=== PATIENT | female | born 1985 | race Caucasian/White ===

== ENCOUNTER 2016-11-18 21:46 | Emergency (ER) | payer MEDICAID ==
[~2016-11-18] VITALS: Ht 152.4 cm; Wt 102.0 kg
[~2016-11-18 21:46] MED LIST: GABA-526 PO; IBUP400T22 PO; LEVO750T25 PO; LORA-444 PO; LORA1TAB PO; OSLT75C PO; OXYC-284 PO
[2016-11-18 22:00] VITALS: Ht 152.4 cm; Wt 102.0 kg
[2016-11-19] MEDS ORDERED: ONDANSETRON (ODT) 4 MG TAB ODT STA (00:18)
[2016-11-19] MEDS ORDERED: BUPIVACAINE 0.25% (MPF) 30 ML INJ INJ ONE (00:30)
--- NOTE | 2016-11-19 00:50 | ERD ---
ER Documentation Chief Complaint Date/Time DATE: 11/19/16 TIME: 00:40 Chief Complaint worsening of chronic back pain and bilateral leg weakness HPI 31-year-old female with chronic back pain is complaining of worsening lower back pain that radiates to bilateral legs since yesterday. Patient stated that she jumped out of bed quickly previous night. Shortly after, she is experiencing pain in the bilateral buttocks region that radiates down the front of both legs. She also occasionally feeling numbness and tingling in her legs. Patient receives epidural injection for her chronic back pain, last injection was 6-7 months ago. Patient also complaining of nausea, vomiting, diarrhea since yesterday as well. And able to drink any fluids because of vomiting. She took Zofran at home without improvement. Patient stated that she is feeling anxious, she has history of anxiety. Her anxiety often leads to vomiting. She took Ativan at home without improvement of anxiety. She is able to ambulate without difficulty. Denies fever or chills. Denies falls or heavy lifting. ROS All systems reviewed and are negative except as per history of present illness. Medications Home Meds Active Scripts Cyclobenzaprine Hcl* (Cyclobenzaprine Hcl*) 10 Mg Tablet, 10 MG PO TID, #15 TAB Prov:FLOR CHUA DIRECTOR CPG 11/19/16 Acetaminophen* (Tylophen*) 500 Mg Capsule, 1 CAP PO Q6H Y for PAIN AND OR ELEVATED TEMP, #20 CAP Prov:FLOR CHUA. DIRECTOR CPG 11/19/16 Oxycodone Hcl-Acetaminophen* (Percocet*) 10-325 Mg Tablet, 1 TAB PO Q4H Y for SEVERE PAIN LEVEL 7-10, #20 TAB Prov:NICOLE GARCIAS NP 03/09/16 Ibuprofen* (Motrin*) 400 Mg Tab, 400 MG PO Q6H Y for PAIN AND OR ELEVATED TEMP, #30 TAB Prov:MARRY ALLEN PA-C 11/18/15 Lorazepam* (Lorazepam*) 1 Mg Tablet, 1 MG PO Q8, #3 TAB Prov:CIPRIANO BEAULIEU PA-C 11/08/15 Oseltamivir Phosphate* (Tamiflu*) 75 Mg Capsule, 75 MG PO BID, #10 CAP Prov:HOLA HWANG MD 10/02/15 Levofloxacin* (Levaquin*) 750 Mg Tablet, 750 MG PO DAILY, #10 TAB Prov:HOLA HWANG MD 10/02/15 Reported Medications Gabapentin* (Gabapentin*) 600 Mg Tablet, 600 MG PO TID, TAB 06/09/14 Lorazepam* (Ativan*) 2 Mg Tablet, 2 MG PO BID, TAB 06/09/14 Allergies Allergies: Coded Allergies: No Known Allergy (Unverified , 11/18/15) PMhx/Soc History of Surgery: Yes (hysterectomy,kidney sx, galls tones removed) Anesthesia Reaction: No Hx Neurological Disorder: No Hx Respiratory Disorders: No Hx Cardiac Disorders: No Hx Psychiatric Problems: Yes (anxiety) Hx Miscellaneous Medical Probl: Yes (chronic back pain, STAGE 4 ENDOMETRIOSIS CONNECTED TO INTESTINES ) Hx Alcohol Use: No Hx Substance Use: No Hx Tobacco Use: No Smoking Status: Never smoker Physical Exam Vitals Vital Signs Date Time Temp Pulse Resp B/P Pulse Ox O2 Delivery O2 Flow Rate FiO2 11/18/16 22:00 98.4 124 18 135/80 97 Physical Exam General impression: Well-developed, morbidly obese. Alert, oriented, in no acute distress Head: Normocephalic, atraumatic. Respiration: Normal respiratory effort. Lungs clear to auscultate bilaterally. No wheezes, rales or rhonchi. Cardiovascular: Regular rate and rhythm. No murmurs or extra heart sounds. Abdomen: Abdomen normal to inspection. Nontender. No masses or organomegaly. Bowel sounds normal. Back: Normal to inspection. Markedly lordosis noted in the lumbar spine, with midline spine tenderness at L4 - L5 levels. Bilateral gluteal muscle spasm. No CVA tenderness. Extremities: Extremities normal to inspection, nontender. ROM normal. Neuro: Mental status normal, speech normal. DIRECTOR OF CURRICULUM grossly intact. Skin: Normal turgor. No rash or lesions. Psych: Normal mood and affect. Results 24 hrs Current Medications Medications (Trade) Dose Ordered Sig/Boni Route PRN Reason Start Time Stop Time Status Last Admin Dose Admin Ondansetron HCl (Zofran Odt) 8 mg ONCE STAT ODT 11/19/16 00:18 11/19/16 00:21 DC 11/19/16 00:38 Bupivacaine HCl (Marcaine 0.25% (Mpf) 30 ml) 30 ml ONCE ONCE INJ 11/19/16 00:30 2/26/17 00:31 DC Procedures/MDM Procedure note: Trigger point injection Trigger point injection performed by me. 10 mL of bupivacaine is injected into bilateral gluteal region. Total number muscle groups injected: 2. Patient reports improvement of pain after the trigger point injection. Zofran 8 mg ODT given to the patient in the ED for nausea vomiting. Patient did not have any further vomiting in the ED. Patient has chronic back pain, the radiation of the pain is likely due to new onset gluteal muscle spasm. Low suspicion for spinal fracture, subluxation, disc herniation, spinal epidural abscess, or cauda equina syndrome. Patient's pain improved after trigger point injection. Patient also reports nausea, vomiting, diarrhea 1 day. I suspect viral gastroenteritis. Patient is afebrile, does not have any abdominal tenderness on palpation. I doubt acute appendicitis, cholecystitis or other acute abdomen. Patient does not have any active vomiting, is able to maintain by mouth fluid intake. Patient appears well, stable for discharge and outpatient management. Medical decision making shared with patient and family. Education provided to patient and family. Patient and family expressed understanding of the plan. Medications on discharge: Tylenol, Flexeril. Follow-up: Primary care provider in 2-3 days or return to ED if worse. FLOR CHUA NP Nov 19, 2016 00:50
[2016-11-19] MEDS ORDERED: ACET500C5 PO (00:52)
[2016-11-19] MEDS ORDERED: CYCL-319 PO (00:52)
[2016-11-19 01:18] VITALS: BP 130/80; PULSE 102; RESP 16
== END 2016-11-19 02:05 | disposition home or self-care (01) ==
LOC: FTE 21:46
DX: M54.5 Low back pain (principal); R11.2 Nausea with vomiting, unspecified; R19.7 Diarrhea, unspecified; F41.9 Anxiety disorder, unspecified
CPT/HCPCS: 20552; Z7502; Z7610

== ENCOUNTER 2017-06-19 19:48 | Emergency (ER) | payer MEDICAID ==
[~2017-06-19] VITALS: Ht 160 cm; Wt 94.5 kg
[~2017-06-19 19:48] MED LIST changes: +ACET500C5 PO; +CYCL-319 PO
[2017-06-19 20:23] VITALS: Ht 160 cm; Wt 94.5 kg
[2017-06-19] MEDS ORDERED: AZIT250T94 PO (21:50)
[2017-06-19] MEDS ORDERED: PSEU30TA38 PO (21:50)
[2017-06-19] MEDS ORDERED: LORAZEPAM 1 MG TAB PO ONE (22:00)
--- NOTE | 2017-06-19 23:32 | ERD ---
ER Documentation Chief Complaint Date/Time DATE: 06/19/17 TIME: 23:28 Chief Complaint Feels cold, throat pain, horse voice x2 days. Hx: Anxiety HPI 32-year-old female complaining of sore throat and nasal congestion. Patient states she has decreased hearing secondary to to congestion. Has mild sore throat with no cough. No fevers. Feels anxious because of her symptoms. Denies sick contacts. Not taken medications for her symptoms. Symptoms are constant. ROS All systems reviewed and are negative except as per history of present illness. Medications Home Meds Active Scripts Pseudoephedrine Hcl* (Pseudoephedrine Hcl*) 30 Mg Tablet, 30 MG PO Q6 Y for CONGESTION, #30 TAB Prov:DOMENICO CORNEJO PA-C 06/19/17 Azithromycin* (Zithromax*) 250 Mg Tablet, 250 MG PO .ZPACK DIRECTED, #6 TAB TAKE 500 MG (2 TABS) THE FIRST DAY THEN 250 MG (1 TAB) DAYS 2-5 Prov:DOMENICO CORNEJO PA-C 06/19/17 Cyclobenzaprine Hcl* (Cyclobenzaprine Hcl*) 10 Mg Tablet, 10 MG PO TID, #15 TAB Prov:FLOR CHUA RECOATING MACHINE OPERATOR 11/19/16 Acetaminophen* (Tylophen*) 500 Mg Capsule, 1 CAP PO Q6H Y for PAIN AND OR ELEVATED TEMP, #20 CAP Prov:FLOR CHUA RECOATING MACHINE OPERATOR 11/19/16 Oxycodone Hcl-Acetaminophen* (Percocet*) 10-325 Mg Tablet, 1 TAB PO Q4H Y for SEVERE PAIN LEVEL 7-10, #20 TAB Prov:NICOLE GARCIAS NP 03/09/16 Ibuprofen* (Motrin*) 400 Mg Tab, 400 MG PO Q6H Y for PAIN AND OR ELEVATED TEMP, #30 TAB Prov:MARRY ALLEN PA-C 11/18/15 Lorazepam* (Lorazepam*) 1 Mg Tablet, 1 MG PO Q8, #3 TAB Prov:CIPRIANO BEAULIEU PA-C 11/08/15 Oseltamivir Phosphate* (Tamiflu*) 75 Mg Capsule, 75 MG PO BID, #10 CAP Prov:HOLA HWANG MD 10/02/15 Levofloxacin* (Levaquin*) 750 Mg Tablet, 750 MG PO DAILY, #10 TAB Prov:ERIHOLA Daniel MD 10/02/15 Reported Medications Gabapentin* (Gabapentin*) 600 Mg Tablet, 600 MG PO TID, TAB 06/09/14 Lorazepam* (Ativan*) 2 Mg Tablet, 2 MG PO BID, TAB 06/09/14 Allergies Allergies: Coded Allergies: No Known Allergy (Unverified , 11/18/15) PMhx/Soc History of Surgery: Yes (HYSTERECTOMY, "SOME KIDNEY SURGERY") Anesthesia Reaction: No Hx Neurological Disorder: No Hx Respiratory Disorders: No Hx Cardiac Disorders: No Hx Psychiatric Problems: Yes (ANXIETY, DEPRESSION) Hx Miscellaneous Medical Probl: Yes (chronic back pain, STAGE 4 ENDOMETRIOSIS CONNECTED TO INTESTINES ) Hx Alcohol Use: No Hx Substance Use: No Hx Tobacco Use: No Smoking Status: Never smoker Physical Exam Vitals Vital Signs Date Time Temp Pulse Resp B/P Pulse Ox O2 Delivery O2 Flow Rate FiO2 06/19/17 20:23 97.4 104 20 130/73 96 Physical Exam GENERAL: The patient is well-appearing, well-nourished, in no acute distress HEENT: Atraumatic. Conjunctivae are pink. Pupils equal, round, and reactive to light. There is no scleral icterus. Tympanic membranes clear bilaterally. Oropharynx clear. No nystagmus or photophobia. NECK: C-spine is soft and supple. There is no meningismus. There is no cervical lymphadenopathy. No JVD. No bruits. No goiter. CHEST: Clear to auscultation bilaterally. There are no rales, wheezes or rhonchi. HEART: Regular rate and rhythm. No murmurs, clicks, rubs or gallops. No S3 or S4. Results 24 hrs Current Medications Medications (Trade) Dose Ordered Sig/Boni Route PRN Reason Start Time Stop Time Status Last Admin Dose Admin Lorazepam (Ativan) 1 mg ONCE ONCE PO 06/19/17 22:00 06/19/17 22:01 DC 06/19/17 21:57 Procedures/MDM MDM: 32-year-old female planing of nasal congestion and URI symptoms. I have low suspicion for meningitis or sepsis. I will treat patient with antibiotics to prophylactically treat for bacterial sinusitis. I have low suspicion for bacterial oropharynx infection or pneumonia. Patient is told if symptoms change or worsen return to ER. I recommend to go to primary doctor in 1-2 days for close evaluation. Departure Diagnosis: Primary Impression: URI (upper respiratory infection) Condition: Stable Patient Instructions: Sinusitis, Abx Tx Referrals: [facility] YOU HAVE RECEIVED A MEDICAL SCREENING EXAM AND THE RESULTS INDICATE THAT YOU DO NOT HAVE A CONDITION THAT REQUIRES URGENT TREATMENT IN THE EMERGENCY DEPARTMENT. FURTHER EVALUATION AND TREATMENT OF YOUR CONDITION CAN WAIT UNTIL YOU ARE SEEN IN YOUR DOCTORS OFFICE WITHIN THE NEXT 1-2 DAYS. IT IS YOUR RESPONSIBILITY TO MAKE AN APPOINTMENT FOR FOLOW-UP CARE. IF YOU HAVE A PRIMARY DOCTOR --you should call your primary doctor and schedule an appointment IF YOU DO NOT HAVE A PRIMARY DOCTOR YOU CAN CALL OUR PHYSICIAN REFERRAL HOTLINE AT IF YOU CAN NOT AFFORD TO SEE A PHYSICIAN YOU CAN CHOSE FROM THE FOLLOWING [facility] [address]. [facility] [address] [facility] [facility] [address] [facility] [address] [facility] [address] [facility] [address] [facility]. [address] Additional Instructions: FOLLOW UP WITH YOUR PRIMARY CARE PHYSICIAN TOMORROW.Return to this facility if you are not improving as expected. DOMENICO CORNEJO PA-C Jun 19, 2017 23:31
== END 2017-06-19 22:03 | disposition home or self-care (01) ==
LOC: FTE 19:48
DX: J06.9 Acute upper respiratory infection, unspecified (principal)
CPT/HCPCS: Z7502; Z7610; 99283

== ENCOUNTER 2017-08-01 22:18 | Emergency (ER) | payer MEDICAID ==
[~2017-08-01] VITALS: Ht 157.5 cm; Wt 98.9 kg
[~2017-08-01 22:18] MED LIST changes: +AZIT250T94 PO; +PSEU30TA38 PO
[2017-08-01 22:24] VITALS: Ht 157.5 cm; Wt 98.9 kg
[2017-08-01] MEDS ORDERED: HYDROCODONE/APAP (5/325) TAB PO STA (23:47)
[2017-08-01] MEDS ORDERED: TRAM50TA2 PO (23:51)
--- NOTE | 2017-08-10 06:45 | ERD ---
ER Documentation Chief Complaint Chief Complaint body aches x 3 days; denies cough/fever; hx of anxiety HPI 32-year-old female history of anxiety presents to the emergency department complaining of generalized body aches for the past 2 days. S she denies any cough, fever, sore throat, headache. Patient denies taking any medications for this. ROS All systems reviewed and are negative except as per history of present illness. Medications Home Meds Active Scripts Tramadol HCl (Tramadol HCl) 50 Mg Tablet, 50 MG PO Q4 Y for PAIN, #20 TAB Prov:MARRY ALLEN PA-C 08/01/17 Pseudoephedrine Hcl* (Pseudoephedrine Hcl*) 30 Mg Tablet, 30 MG PO Q6 Y for CONGESTION, #30 TAB Prov:DOMENICO CORNEJO PA-C 06/19/17 Azithromycin* (Zithromax*) 250 Mg Tablet, 250 MG PO .ZPACK DIRECTED, #6 TAB TAKE 500 MG (2 TABS) THE FIRST DAY THEN 250 MG (1 TAB) DAYS 2-5 Prov:DOMENICO CORNEJO PA-C 06/19/17 Cyclobenzaprine Hcl* (Cyclobenzaprine Hcl*) 10 Mg Tablet, 10 MG PO TID, #15 TAB Prov:FLOR CHUA LSAT INSTRUCTOR 11/19/16 Acetaminophen* (Tylophen*) 500 Mg Capsule, 1 CAP PO Q6H Y for PAIN AND OR ELEVATED TEMP, #20 CAP Prov:FLOR CHUA LSAT INSTRUCTOR 11/19/16 Oxycodone Hcl-Acetaminophen* (Percocet*) 10-325 Mg Tablet, 1 TAB PO Q4H Y for SEVERE PAIN LEVEL 7-10, #20 TAB Prov:NICOLE GARCIAS NP 03/09/16 Ibuprofen* (Motrin*) 400 Mg Tab, 400 MG PO Q6H Y for PAIN AND OR ELEVATED TEMP, #30 TAB Prov:MARRY ALLEN PA-C 11/18/15 Lorazepam* (Lorazepam*) 1 Mg Tablet, 1 MG PO Q8, #3 TAB Prov:CIPRIANO BEAULIEUC 11/08/15 Oseltamivir Phosphate* (Tamiflu*) 75 Mg Capsule, 75 MG PO BID, #10 CAP Prov:HOLA HWANG MD 10/02/15 Levofloxacin* (Levaquin*) 750 Mg Tablet, 750 MG PO DAILY, #10 TAB Prov:HOLA HWANG MD 10/02/15 Reported Medications Gabapentin* (Gabapentin*) 600 Mg Tablet, 600 MG PO TID, TAB 06/09/14 Lorazepam* (Ativan*) 2 Mg Tablet, 2 MG PO BID, TAB 06/09/14 Allergies Allergies: Coded Allergies: No Known Allergy (Unverified , 08/02/17) PMhx/Soc History of Surgery: Yes (HYSTERECTOMY, "SOME KIDNEY SURGERY") Anesthesia Reaction: No Hx Neurological Disorder: No Hx Respiratory Disorders: No Hx Cardiac Disorders: No Hx Psychiatric Problems: Yes (ANXIETY, DEPRESSION) Hx Miscellaneous Medical Probl: Yes (chronic back pain, STAGE 4 ENDOMETRIOSIS CONNECTED TO INTESTINES ) Hx Alcohol Use: No Hx Substance Use: No Hx Tobacco Use: No Smoking Status: Never smoker Physical Exam Physical Exam Const: WDWN Head: Atraumatic Eyes: Normal Conjunctiva ENT: Normal External Ears, Nose and Mouth. Neck: Full range of motion..~ No meningismus. Resp: Clear to auscultation bilaterally Cardio: Regular rate and rhythm, no murmurs Abd: Soft, non tender, non distended. Normal bowel sounds Skin: No petechiae or rashes Back: No midline or flank tenderness Ext: No cyanosis, or edema Neur: Awake and alert Psych: Normal Mood and Affect Results 24 hrs Current Medications Medications (Trade) Dose Ordered Sig/Boni Route PRN Reason Start Time Stop Time Status Last Admin Dose Admin Acetaminophen/ Hydrocodone Bitart ([place] (5/325)) 2 tab ONCE STAT PO 08/01/17 23:47 08/01/17 23:48 DC 08/02/17 00:10 Procedures/MDM 2-year-old female presents to the emergency department complaining of generalized body aches arthralgia. Patient has a history of anxiety, have reviewed patient's past chart she has been here numerous times for chronic pain conditions. There was no evidence of strep pharyngitis, pneumonia, otitis media. Patient appears well and stable to be discharged home to follow-up with her primary care physician. Given patient a short course of tramadol and have her discuss to follow-up with her pain management. She understands and agrees this plan Departure Diagnosis: Primary Impression: Arthralgia Condition: Stable Patient Instructions: Arthralgia Additional Instructions: FOLLOW UP WITH YOUR PRIMARY CARE PHYSICIAN TOMORROW.Return to this facility if you are not improving as expected. Take all medicines as directed. Return to this facility if you are not improving as expected. MARRY ALLEN PA-C Aug 10, 2017 06:45
== END 2017-08-02 00:39 | disposition home or self-care (01) ==
LOC: FTE 22:18
DX: M25.50 Pain in unspecified joint (principal)
CPT/HCPCS: 99283

== ENCOUNTER 2017-10-14 04:40 | Emergency (ER) | END 2017-10-14 08:05 | disposition home or self-care (01) ==

== ENCOUNTER 2018-07-13 15:36 | Emergency (ER) | END 2018-07-13 18:19 | disposition home or self-care (01) ==

== ENCOUNTER 2019-06-16 01:49 | Emergency (ER) | payer MEDICAID ==
[~2019-06-16] VITALS: Ht 152.4 cm; Wt 91.4 kg
[~2019-06-16 01:49] MED LIST changes: +ACYC800T5 PO; +AMOX1TAB10 PO; +AZIT250T PO; -AZIT250T94 PO; -CYCL-319 PO; +CYCL10TA7 PO; +FIORICET PO; +IBUP-1542 PO; +IBUP-1561 PO; -IBUP400T22 PO; +MED4DP PO; +NAPR-985 PO; +NPH10OT RIGHT EAR; +OSEL75CA23 PO; -OSLT75C PO; +TRAM50TA2 PO
[2019-06-16 01:59] VITALS: BP 131/65; PULSE 100; RESP 19; Ht 152.4 cm; Wt 91.4 kg
[2019-06-16] MEDS ORDERED: IBUPROFEN 600 MG TAB PO ONE (02:30)
== END 2019-06-16 03:55 | disposition home or self-care (01) ==
LOC: FTE 01:49
DX: S82.64XA Nondisplaced fracture of lateral malleolus of right fibula, initial encounter for closed fracture (principal); X50.1XXA Overexertion from prolonged static or awkward postures, initial encounter; Y92.9 Unspecified place or not applicable
CPT/HCPCS: 73610; Z7502; Z7610